=== PATIENT | female | born 1970 | race American Indian/Alaskan Native ===

== ENCOUNTER 2016-08-24 17:23 | Emergency (ER) | payer OTHER ==
[2016-08-24 18:26] LABS: Basophils % (Auto) 0.5 % (0.0-1.8); Eosinophils % (Auto) 1.9 % (0.0-4.3); Hematocrit 38.8 % (30.3-42.9); Hemoglobin 12.7 gm/dl (10.1-14.3); Mean Corpuscular HGB Conc 33 % (30-34); Mean Corpuscular Hemoglobin 32 pg (28-32); Mean Corpuscular Volume 97 fl (79-97); Platelet Count 268 K/mm3 (140-440); Red Blood Count 4.01 M/mm3 (3.65-5.03); Red Cell Distribution Width 14.2 % (13.2-15.2); White Blood Count 11.2 K/mm3 (4.5-11.0)
[2016-08-24 18:28] LABS: Anion Gap 18 mmol/L; BUN/Creatinine Ratio 15.71; Blood Urea Nitrogen 11 mg/dL (7-17); Calcium 9.4 mg/dL (8.4-10.2); Carbon Dioxide 28 mmol/L (22-30); Chloride 96.6 mmol/L (98-107); Glucose 90 mg/dL (65-100); Potassium 3.4 mmol/L (3.6-5.0); Sodium 139 mmol/L (137-145)
[2016-08-24 21:47] VITALS: BP 115/69
--- NOTE | 2016-08-24 22:29 | Emergency Department Report ---
ED Chest Pain HPI - General Chief Complaint: Chest Pain Stated Complaint: SOB/CHEST PAIN Time Seen by Provider: 08/24/16 22:08 Source: patient, RN notes reviewed Mode of arrival: Ambulatory Limitations: No Limitations - History of Present Illness Initial Comments: This is a 45-year-old female. She is previously unknown to me. Her primary care doctor is Dr. Lien Mcmahon. Past medical history includes herpes, and hysterectomy. The patient presents to the ER complaining of left-sided chest pain. The chest pain is just beneath her breast. It has been present for the past 3-4 days. It does not radiate to the back, arms and neck. There is no vomiting or diaphoresis. Patient reports she has been having this pain intermittently for the past 3-4 months. Patient has no shortness of breath per se, but she reports the pain increases when she takes a deep breath. No recent colds, coughs or sore throats. No recent fevers. There is no leg pain. There is no leg swelling. No recent trips greater than 4 hours. No recent hospital admissions. No recent surgeries. Does not take control tablets. No recent aspirin use. No cocaine use. MD Complaint: chest pain -: Gradual, month(s) Pain Location: left chest Pain Radiation: none Severity: mild Severity scale (0 -10): 5 Quality: aching Consistency: intermittent Improves With: nothing Worsens With: exertion, inspiration re: denies: nausea, vomting, diaphoresis, dyspnea, sense of impending doom Other Symptoms: denies: fever, syncope Aspirin use within the Past 7 Days: (0) No - Related Data On Oral Contraceptives: No Home Medications Medication Instructions Recorded Confirmed Last Taken No Known Home Medications [No 08/24/16 08/24/16 Unknown Reported Home Medications] Allergies Allergy/AdvReac Type Severity Reaction Status Date / Time Beef Containing Products Allergy Angioedema Verified 08/24/16 17:41 Heart Score - HEART Score History: Slightly suspicious EKG: Normal Age: 45-65 Risk factors: No known risk factors Troponin: < normal limit HEART Score: 1 - Critical Actions Critical Actions: 0-3 pts:0.9-1.7%risk of adverse cardiac event.Candidate for discharge ED Review of Systems ROS: Stated complaint: SOB/CHEST PAIN Other details as noted in HPI Constitutional: denies: fever, malaise Eyes: denies: vision change ENT: denies: epistaxis Respiratory: denies: cough Cardiovascular: chest pain Gastrointestinal: denies: nausea, vomiting Genitourinary: denies: urgency, dysuria Musculoskeletal: denies: back pain Skin: denies: lesions Neurological: denies: weakness Psychiatric: denies: anxiety ED Past Medical Hx - Past Medical History Previous Medical History?: No - Surgical History Additional Surgical History: PARTIAL HYSTERECTOMY 2011 - Social History Smoking Status: Never Smoker Substance Use Type: None - Medications Home Medications: Home Medications Medication Instructions Recorded Confirmed Last Taken Type No Known Home Medications [No 08/24/16 08/24/16 Unknown History Reported Home Medications] ED Physical Exam - General Limitations: No Limitations General appearance: alert, in no apparent distress - Head Head exam: Present: atraumatic, normocephalic - Eye Eye exam: Present: normal appearance, EOMI. Absent: nystagmus - ENT ENT exam: Present: normal exam, normal orophraynx, mucous membranes moist, normal external ear exam - Neck Neck exam: Present: normal inspection, full ROM. Absent: tenderness, meningismus - Respiratory Respiratory exam: Present: normal lung sounds bilaterally, other (the bilateral breast exam is unremarkable. There is no redness, pus or streaking. During the breast examination, I am escorted by ER lead technician To). Absent: respiratory distress, wheezes, rales, rhonchi, stridor, chest wall tenderness - Cardiovascular Cardiovascular Exam: Present: regular rate, normal rhythm, normal heart sounds. Absent: bradycardia, tachycardia, irregular rhythm, systolic murmur, diastolic murmur, rubs, gallop - GI/Abdominal GI/Abdominal exam: Present: soft, normal bowel sounds. Absent: distended, tenderness, guarding, rebound, rigid, pulsatile mass - Extremities Exam Extremities exam: Present: normal inspection, full ROM, normal capillary refill. Absent: tenderness, pedal edema, joint swelling, calf tenderness - Back Exam Back exam: Present: normal inspection, full ROM. Absent: tenderness, CVA tenderness (R), CVA tenderness (L), muscle spasm, paraspinal tenderness, vertebral tenderness - Neurological Exam Neurological exam: Present: alert, oriented X3, normal gait, other (Extraocular movements intact. Tongue midline. No facial droop. Facial sensation intact to light touch in the V1, V2, V3 distribution bilaterally. 5 and 5 strength in 4 extremities.. Sensation is intact to light touch in 4 extremities.). Absent : motor sensory deficit - Psychiatric Psychiatric exam: Present: normal affect, normal mood - Skin Skin exam: Present: warm, dry, intact, normal color. Absent: rash ED Course Vital Signs 08/24/16 08/24/16 17:43 21:46 Temperature 98.7 F Pulse Rate 77 76 Respiratory 17 14 Rate Blood Pressure 118/71 115/69 O2 Sat by Pulse 100 100 Oximetry GENARO score - Genaro Score Age > 65: (0) No Aspirin use within the Past 7 Days: (0) No 3 or more CAD Risk Factors: (0) No 2 or more Angina events in past 24 hrs: (0) No Known CAD with more than 50% Stenosis: (0) No Elevated Cardiac Markers: (0) No ST Deviation Greater than 0.5mm: (0) No GENARO Score: 0 ED Medical Decision Making - Lab Data Result diagrams: 08/24/16 18:09 08/24/16 17:53 Vital Signs 08/24/16 08/24/16 17:43 21:46 Temperature 98.7 F Pulse Rate 77 76 Respiratory 17 14 Rate Blood Pressure 118/71 115/69 O2 Sat by Pulse 100 100 Oximetry Lab Results 08/24/16 08/24/16 Range/Units 17:53 18:09 WBC 11.2 H (4.5-11.0) K/mm3 RBC 4.01 (3.65-5.03) M/mm3 Hgb 12.7 (10.1-14.3) gm/dl Hct 38.8 (30.3-42.9) % MCV 97 (79-97) fl MCH 32 (28-32) pg MCHC 33 (30-34) % RDW 14.2 (13.2-15.2) % Plt Count 268 (140-440) K/mm3 Lymph % (Auto) 40.4 H (13.4-35.0) % Eagle % (Auto) 6.5 (0.0-7.3) % Eos % (Auto) 1.9 (0.0-4.3) % Baso % (Auto) 0.5 (0.0-1.8) % Lymph # 4.5 (1.2-5.4) K/mm3 Eagle # 0.7 (0.0-0.8) K/mm3 Eos # 0.2 (0.0-0.4) K/mm3 Baso # 0.1 (0.0-0.1) K/mm3 Seg Neutrophils % 50.7 (40.0-70.0) % Seg Neutrophils # 5.7 (1.8-7.7) K/mm3 Sodium 139 (137-145) mmol/L Potassium 3.4 L (3.6-5.0) mmol/L Chloride 96.6 L (98-107) mmol/L Carbon Dioxide 28 (22-30) mmol/L Anion Gap 18 mmol/L BUN 11 (7-17) mg/dL Creatinine 0.7 (0.7-1.2) mg/dL Estimated GFR > 60 ml/min BUN/Creatinine Ratio 15.71 % Glucose 90 (65-100) mg/dL Calcium 9.4 (8.4-10.2) mg/dL Troponin T < 0.010 (0.00-0.029) ng/mL - EKG Data -: EKG Interpreted by [facility] EKG shows normal: sinus rhythm Rate: normal - EKG Data 08/24/16 22:54 EKG #1: Normal sinus, 81 beats per minute, normal intervals, axis , not morphologically consistent with STEMI. EKG #2 Normal sinus, 74 beats per minute, normal intervals, normal axis, not morphologically consistent with STEMI. - Radiology Data Radiology results: image reviewed interpreted by me: X-ray of the chest is negative for acute disease - Medical Decision Making Differential diagnosis: Costochondritis, pleuritis, pericarditis, myocarditis, acute coronary syndrome, pneumonia, mastodynia Assessment and plan: 45-year-old female whose had months of intermittent left in for memory/posterior breast pain, which is not associated with nausea, vomiting, diaphoresis or shortness of breath. There is a pleuritic component. The patient has no pulmonary embolus or DVT risk factors, she is low risk by well's criteria, and she is perc negative. Furthermore, the patient is low risk by GENARO score, and low risk by heart score. Her physical exam is unremarkable, given lack of tachycardia, negative troponins, myocarditis is very unlikely. X-ray of the chest is negative, her breast exam is unremarkable, and she declines pain medication at this time. Extensive discussion had with the patient. The patient understands that she is at low risk for major adverse cardiac event, and threw shared decision making, she agrees to follow up with an outpatient [facility] [employer] within the next 3-5 days for outpatient ACS risk stratification. The patient is reliable. Return precautions are reviewed. serial EKGs are within normal limits and unremarkable, and serial troponins are unremarkable as well. Critical care attestation.: If time is entered above; I have spent that time in minutes in the direct care of this critically ill patient, excluding procedure time. ED Disposition Clinical Impression: Chest pain Disposition: DC-01 TO HOME OR SELFCARE Is pt being admited?: No Does the pt Need Aspirin: No Condition: Stable Instructions: Chest Pain (ED) Additional Instructions: Follow up with any of the listed cardiology doctors within the next 3-5 days. Return to the ER right away with new pain, worsened pain, migration of pain, fevers, chills, confusion, intractable nausea or vomiting, inability to tolerate liquid feeds. Referrals: LIEN MCMAHON MD [Primary Care Provider] - 3-5 Days GILBERTO RICO MD [Staff Physician] - 3-5 Days ISIDORO TYLER MD [Staff Physician] - 3-5 Days
[2016-08-24] MEDS ORDERED: K-DUR PO ONE (22:54)
--- NOTE | 2016-08-25 07:54 | XRay Report ---
ROUTINE CHEST, TWO VIEWS: HISTORY: Shortness of breath, chest pain. The trachea, heart, mediastinal contour, lung velasquez and bony thorax are unremarkable. IMPRESSION: Unremarkable chest x-ray.
== END 2016-08-24 23:19 | disposition home or self-care (01) ==
LOC: ED 17:23
DX: R07.89 Other chest pain (principal)
CPT/HCPCS: 36415; 71020; 80048; 84484; 85025; 93005; 93010; 99284